=== PATIENT | female | born 1995 | race Caucasian/White ===

== ENCOUNTER 2019-01-23 23:38 | Emergency (ER) | payer BC, MEDICAID ==
--- NOTE | 2019-01-24 00:32 | ED ---
Psychiatric Complaint - HPI Summary HPI Summary: This patient is a 23 year old F presenting to ED accompanied by father with a chief complaint of bipolar disorder since 01/13/19. The father states the patient has been manic for the last 10 days and now the patient is depressed, anxious, and SI. Prior treatment includes 2 trazodone and 2 lorazepam. Usually, the patient is on 1500mg Depakote, 80mg geodon, and 100 mg trazadone. She is not on lithium. The patient rates the pain 2/10 in severity. Symptoms aggravated by nothing. Symptoms alleviated by nothing. Patient reports insomnia. However she was given medication that helped her sleep a lot last night. PMHx of Bipolar disorder I. - History Of Current Complaint Chief Complaint: EDMentalHealth Time Seen by Provider: 01/23/19 23:53 Hx Obtained From: Patient, Family/Regulatory Compliance Officer - accompanied by father Onset/Duration: Sudden Onset, Lasting Days - 10 days ago, Still Present Timing: Days Severity Currently: None Character: Manic, Depressed, Anxious Aggravating Factor(s): Nothing Alleviating Factor(s): Nothing Associated Signs And Symptoms: Positive: Sleep Disturbance Related History: Positive For: Prior Psychiatric Issues Has Suicidal: Reports: Thoughts - Allergies/Home Medications Allergies/Adverse Reactions: Allergies Allergy/AdvReac Type Severity Reaction Status Date / Time No Known Allergies Allergy Verified 01/23/19 23:41 Home Medications: Home Medications Ativan 2 MG TAB 2 mg PO DAILY 01/24/19 [History Confirmed 01/24/19] Depakote 1,500 mg PO BID 01/24/19 [History Confirmed 01/24/19] Ziprasidone HCl [Geodon] 40 mg PO BID 01/24/19 [History Confirmed 01/24/19] traZODone TAB* [Desyrel TAB*] 50 mg PO DAILY PRN 01/24/19 [History Confirmed 05/07] PMH/Surg Hx/FS Hx/Imm Hx Endocrine/Hematology History: Denies: Hx Diabetes Cardiovascular History: Denies: Hx Coronary Artery Disease, Hx Hypertension Psychiatric History: Reports: Hx Bipolar Disorder Infectious Disease History: No Infectious Disease History: Denies: Traveled Outside the US in Last 30 Days - Family History Known Family History: Negative: Blood Disorder - Social History Alcohol Use: None Substance Use Type: Reports: None Smoking Status (MU): Never Smoked Tobacco Review of Systems Neurological: Other - insomnia Positive: Anxious, Depressed, Other - bipolar disorder I, manic, SI All Other Systems Reviewed And Are Negative: Yes Physical Exam - Summary Physical Exam Summary: VITAL SIGNS: Reviewed. GENERAL: Patient is a well-developed and nourished FEMALE who is lying comfortable in the stretcher. Patient is not in any acute respiratory distress. HEAD AND FACE: No signs of trauma. No ecchymosis, hematomas or skull depressions. No sinus tenderness. EYES: PERRLA, EOMI x 2, No injected conjunctiva, no nystagmus. EARS: Hearing grossly intact. Ear canals and tympanic membranes are within normal limits. MOUTH: Oropharynx within normal limits. NECK: Supple, trachea is midline, no adenopathy, no JVD, no carotid bruit, no c- spine tenderness, neck with full ROM CHEST: Symmetric, no tenderness at palpation LUNGS: Clear to auscultation bilaterally. No wheezing or crackles. CVS: Regular rate and rhythm, S1 and S2 present, no murmurs or gallops appreciated. ABDOMEN: Soft, non-tender. No signs of distention. No rebound no guarding, and no masses palpated. Bowel sounds are normal. EXTREMITIES: FROM in all major joints, no edema, no cyanosis or clubbing. NEURO: Alert and oriented x 3. No acute neurological deficits. Speech is normal and follows commands. SKIN: Dry and warm Triage Information Reviewed: Yes Vital Signs On Initial Exam: Initial Vitals Temp Pulse Resp BP Pulse Ox 98.8 F 88 18 108/82 97 01/23/19 23:41 01/23/19 23:41 01/23/19 23:41 01/23/19 23:41 01/23/19 23:41 Vital Signs Reviewed: Yes Diagnostics - Vital Signs Vital Signs Temp Pulse Resp BP Pulse Ox 01/23/19 23:41 98.8 F 88 18 108/82 97 - Laboratory Result Diagrams: 01/24/19 00:26 01/24/19 00:26 Lab Statement: Any lab studies that have been ordered have been reviewed, and results considered in the medical decision making process. Re-Evaluation - Re-Evaluation First Eval Re-Evaluation Time: 01:00 Change: Unchanged Comment: Pt medically cleared for MHE. Course/Dx - Course Assessment/Plan: This patient is a 23 year old F presenting to ED accompanied by father with a chief complaint of bipolar disorder since 01/13/19. Bloodwork, chemistries and toxicology obtained. The patient has been cleared for a MHE. Per mental health oyster worker, Dr. Bright has cleared the patient for discharge. Dx: mood disorder. The patient is agreeable with this plan. - Differential Dx/Clinical Impression Provider Diagnosis: Mood disorder - Physician Notifications Discussed Care Of Patient With: Eric Bright Time Discussed With Above Provider: 02:51 Instructed by Provider To: Other - Per mental health oyster worker, Dr. Bright has cleared the patient for discharge. Dx: mood disorder. Discharge - Sign-Out/Discharge Documenting (check all that apply): Patient Departure - DC Patient Received Moderate/Deep Sedation with Procedure: No - Discharge Plan Condition: Stable Disposition: HOME Patient Education Materials: Mood Disorders (ED) Referrals: No Primary Care Phys,NOPCP [Primary Care Provider] - - Billing Disposition and Condition Condition: STABLE Disposition: Home - Attestation Statements Document Initiated by Dylonibe: Yes Documenting Scribe: Hunter Weiss Provider For Whom Celestine is Documenting (Include Credential): James Bullock MD Scribe Attestation: Hunter Kowalski, scribed for James Bullock MD on 01/24/19 at 0639. Scribe Documentation Reviewed: Yes Provider Attestation: The documentation as recorded by the Hunter mathews accurately reflects the service I personally performed and the decisions made by me, James Bullock MD Status of Scribe Document: Viewed
[2019-01-24 00:34] LABS: ABS Basophils 0.1 10^3/ul (0-0.2); ABS Eosinophils 0.3 10^3/ul (0-0.6); ABS Lymphocytes 2.5 10^3/ul (1.0-4.8); ABS Monocytes 0.6 10^3/ul (0-0.8); ABS Neutrophils 4.4 10^3/ul (1.5-7.7); Eosinophil % 3.9 %; Hematocrit 40 % (35-47); Hemoglobin 13.8 g/dL (12.0-16.0); Lymphocyte % 31.9 %; Mean Corpuscular HGB Conc 34 g/dL (31-36); Mean Corpuscular Hemoglobin 32 pg (27-31); Mean Corpuscular Volume 94 fL (80-97); Mean Platelet Volume 7.5 fL (7.4-10.4); Nucleated Red Blood Cells % 0.1; Platelet Count 242 10^3/uL (150-450); Red Blood Count 4.29 10^6 /uL (3.70-4.87); Red Cell Distribution Width 14 % (10.5-15)
[2019-01-24 00:53] LABS: ALT 21 U/L (7-52); AST 32 U/L (13-39); Albumin 4.2 g/dL (3.2-5.2); Albumin/Globulin Ratio 1.4 (1-3); Alkaline Phosphatase 54 U/L (34-104); Anion Gap 9 mmol/L (2-11); Blood Urea Nitrogen 33 mg/dL (6-24); CO2 Carbon Dioxide 26 mmol/L (22-32); Calcium 9.7 mg/dL (8.6-10.3); Chloride 101 mmol/L (101-111); EGFR African American 113.9 (>60); EGFR Non-African American 94.2 (>60); Globulin 2.9 g/dL (2-4); Glucose 104 mg/dL (70-100); Sodium 136 mmol/L (135-145); Total Protein 7.1 g/dL (6.4-8.9)
[2019-01-24 00:56] LABS: Acetaminophen < 15 mcg/mL; Alcohol < 10 mg/dL (<10); Salicylate < 2.50 mg/dL (<30)
[2019-01-24 00:59] LABS: HCG Pregnancy < 0.60 mIU/mL
[2019-01-24 01:11] LABS: TSH (Thyroid Stimulating Horm) 1.43 mcIU/mL (0.34-5.60)
[2019-01-24 03:16] VITALS: BP 121/76
== END 2019-01-24 03:16 | disposition home or self-care (01) ==
LOC: ED 23:38
DX: F31.9 Bipolar disorder, unspecified (principal); G47.00 Insomnia, unspecified
CPT/HCPCS: 36415; 80053; 80164; 80320; 80329; 84443; 84702; 85025; 99284; G0480

== ENCOUNTER 2019-08-11 04:07 | Emergency (ER) | payer BC, MEDICAID ==
--- OUTSIDE RECORDS SUMMARY | 2019-08-11 04:13 | XMS REPORT | Summary of Care ---
:1995 Author Organization [facility] Address [address] [address] Care Team Providers Name Role Phone None, Larimore Primary Care Provider Unavailable Reason for Visit Reason Comments New Patient left knee pain had fractured it hiking in [place] 6 weeks ago, had brace Encounter Details Date Type Department Care Team Description 06/28/2019 Office Visit [facility] Evelina Etienne, Left knee pain, [place] [facility] unspecified chronicity [address] (Primary Dx) [place] [address] [place] [address] [phone] Allergies Active Allergy Reactions Severity Noted Date Comments Environmental Other 03/15/2019 Sneezing, itchy eyes, drainage documented as of this encounter (statuses as of 06/28/2019) Medications Medication Sig Dispensed Refills Start Date End Date Status trazodone (DESYREL) 50 Take 1.5 Tabs by 45 Tab 5 10/05/2016 Active MG Oral TabIndications: mouth EVERY Bipolar 1 disorder BEDTIME. ([facility]) divalproex sodium Take 2 Tabs by 14 Tab 0 10/30/2016 Active (DEPAKOTE) 250 MG Oral mouth EVERY Tab ECIndications: BEDTIME. Bipolar 1 disorder ([facility]) Additional information Patient taking differently: 250 mg Oral BID, Indications: Taken 250mg in the AM, and 500 at PM, Reported on 02/10/2017 3:13 PM Ziprasidone HCl 60 MG Take 1 Cap by 30 Cap 0 11/02/2016 Active Oral CapIndications: mouth EVERY Bipolar 1 disorder BEDTIME. ([facility]) LORazepam (ATIVAN) 1 Take 1 mg by 0 Active MG Oral Tab mouth HSX1. Ziprasidone HCl 40 MG Take 40 mg by 0 Active Oral Cap mouth EVERY EVENING. fluoxetine (PROZAC) 10 Take 10 mg by 0 Active MG Oral Cap mouth DAILY. mupirocin (BACTROBAN) Apply to sore 30 g 0 05/04/2019 Discontinued 2 % Apply externally areas on abdomen, 019 (Therapy Completed) OintmentIndications: arms and legs Compulsive skin twice daily as picking needed until resolution documented as of this encounter (statuses as of 06/28/2019) Active Problems Problem Noted Date Bipolar 1 disorder 07/28/2016 documented as of this encounter (statuses as of 06/28/2019) Social History Tobacco Use Types Packs/Day Years Used Date Never Smoker 0 Smokeless Tobacco: Never Used Alcohol Use Drinks/Week oz/Week Comments No Sex Assigned at Date Recorded Not on file Job Start Date Occupation Industry Not on file Not on file Not on file Travel History Travel Start Travel End No recent travel history available. documented as of this encounter Last Filed Vital Signs Vital Sign Reading Time Taken Comments Blood Pressure - - Pulse - - Temperature - - Respiratory Rate - - Oxygen Saturation - - Inhaled Oxygen Concentration - - Weight 106.1 kg (234 lb) 06/28/2019 3:20 PM EDT Height 171.5 cm (5' 7.5") 06/28/2019 3:20 PM EDT Body Mass Index 36.11 06/28/2019 3:20 PM EDT documented in this encounter Progress Notes Evelina Etienne PA-C - 06/28/2019 3:00 PM EDT PATIENT: Karin Jacob : 1995 DATE OF SERVICE: 06/28/2019 REFERRING PRACTITIONER: Self PRIMARY CARE PROVIDER: None, Larimore CHIEF COMPLAINT: Chief Complaint Patient presents with New Patient left knee pain had fractured it hiking in [place] 6 weeks ago, had brace Nursing Notes: Brisa Hillman LPN 06/28/2019 3:22 PM Signed REFERRING PRACTITIONER: Self PRIMARY CARE PROVIDER: None, Larimore CHIEF COMPLAINT: Chief Complaint Patient presents with New Patient left knee pain had fractured it hiking in [place] 6 weeks ago, had brace HISTORY OF PRESENT ILLNESS: Karin Jacob is a 24-y.o. female who presents for a new visit. The patient presents with left knee injury and pain. Onset of the symptoms was several weeks ago. Date of injury: Inciting event: injury while hiking. Current symptoms include: pain no, intensity 0, she notes no pain today but notes the pain was lateral when it occurred afterhiking Swelling No, bruising No, weakness No giving way No, catching No, locking No, popping No, grinding No, numbness No stiffness No, radiating pain No to where . Aggravating symptoms: none known. Patient's symptoms are: stable. Patient has had no prior lower extremity problems. Previous visits for this problem: yes, last seen by emergency department at [facility] in [place]. Evaluation to date: plain x-rays : Treatment to date: brace. Past Medical History: She has a past medical history of Depression with anxiety. Past Surgical History: She has no past surgical history on file. Medications: Current Outpatient Medications Medication Sig divalproex sodium (DEPAKOTE) 250 MG Oral Tab EC Take 2 Tabs by mouth EVERY BEDTIME. (Patient taking differently: Take 250 mg by mouth TWICE DAILY. Indications: Taken 250mg in the AM, and 500 at PM) fluoxetine (PROZAC) 10 MG Oral Cap Take 10 mg by mouth DAILY. LORazepam (ATIVAN) 1 MG Oral Tab Take 1 mg by mouth HSX1. trazodone (DESYREL) 50 MG Oral Tab Take 1.5 Tabs by mouth EVERY BEDTIME. Ziprasidone HCl 40 MG Oral Cap Take 40 mg by mouth EVERY EVENING. Ziprasidone HCl 60 MG Oral Cap Take 1 Cap by mouth EVERY BEDTIME. No current facility-administered medications for this visit. Allergies: She is allergic to environmental. Social History: She reports that she has never smoked. She has never used smokeless tobacco. She reports that she does not drink alcohol or use drugs. Family History: She family history includes Diabetes in her maternal grandfather ; High Cholesterol in her maternal grandmother; Hypertension in her maternal grandmother; No Known Problems in her fatherand mother. REVIEW OF SYSTEMS: A comprehensive review of systems was negative except for as noted in the history of present illness/subjective. PHYSICAL EXAMINATION: VITALS: Height 5' 7.5" (1.715 m), weight 234 lb (106.1 kg), not currently . Body mass index is 36.11 kg/m. GENERAL: The patient is alert and oriented times three. Speech and manner are clear and apporopriate. No complaints of memory changes. Patient is able to recall recent and distant events. SKIN: Normal turgor and temperature. No signs of skin lesions, rashes, or ulcerations. No dependent edema. NEUROLOGIC: Coordination and balance ar normal for age. Patellar and achilles reflexes are symmetrical, normal, and 2+. Sensation is intact and symmetrical in the lower extremities. VASCULAR: No venous insufficiency noted in the lower extremities. Pulses are 2+ and normal bilaterally. No clubbing, cyanosis, or edema noted. LOWER EXTREMITY EXAM: KNEE: There is no swelling, erythema, ecchymosis noted of the left knee. No tenderness over the medial joint line and no tenderness over the lateral joint line. Normal alignment. There is no crepitus of the patellofemoral joint. The patient has full active range of motion with full extension and over 120 degrees of flexion. Strength with resisted flexion and extension is full when compared to the opposite side. Negative valgus stress test, varus stress test, Filiberto's, anteriordrawer, posterior drawer, and Magdy's. Calf is soft and nontender. Visualized radiologic studies: Normal left knee IMPRESSION: ICD-9-CM ICD-10-CM 1. Left knee pain, unspecified chronicity 719.46 M25.562 PLAN: Symptoms consistent with IT band injury/tendinitis. She is asymptomatic today and therefore can increase activity as pain allows. Follow-up if symptoms return. May consider MRI to rule out a lateralmeniscal tear at that time. The risks and benefits of my recommendations were discussed with patient and father today. All questions were answered. Author: Evelina Etienne PA-C 06/28/2019 15:39 documented in this encounter Plan of Treatment Date Type Specialty Care Team Description 07/18/2019 Office Visit Bariatrics Jayesh Yanez MD [address] [address] [phone] Health Maintenance Due Date Last Done Comments PAP SMEAR 1995 HPV IMMUNIZATION SERIES (1 - 2008 Female 3-dose series) INFLUENZA VACCINE (#1) 2019 DEPRESSION SCREENING 03/15/2020 03/15/2019 MENINGOCOCCAL VACCINE IMM Aged Out No longer eligible based on patient's age to complete this topic PNEUMOCOCCAL 0-64 YRS Aged Out No longer eligible based on patient's age to complete this topic documented as of this encounter Goals Goal Patient Goal Associated Recent Patient-Stated? Author Type Problems Progress Depression Depression No Saad, screen (PHQ-9) Shaina Goldstein, total score < 5 ALEJANDRINA Note: This is an individualized treatment (depression) goal for Karin Jacob: Displayed above is your goal for a depression screening (PHQ-9) score that would indicate good control of your depression. Keep a regular sleep schedule Lifestyle No Shaina Nash PA-C Note: This is an individualized lifestyle goal for Karin Jacob: Please maintain a regular sleep schedule. This may help with some symptoms of depression. Take all prescribed medications as Self-management No Shaina Nash PA-C directed Note: This is an individualized self-management goal for Karin Jacob: Please take all prescribed medications as directed. 1. Do not skip doses. If you cannot afford your medications, talk with your doctor. 2. Use a pill reminder system such as a pill box if needed. Your pharmacist can help you with this. 3. Contact your Pharmacy 5 days before your medication runs out. If you cannot take your medications for any reasons, talk with your doctor. 4. Please bring all of your medication bottles and inhalers (or a list of all your medications/inhalers) with you to every visit. Potential barriers to meeting all of your care plan goals will continue to be addressed on an ongoing basis. documented as of this encounter Results Not on filedocumented in this encounter Visit Diagnoses Diagnosis Left knee pain, unspecified chronicity - Primary documented in this encounter Insurance Payer Benefit Plan / Subscriber ID Effective Dates Phone Address Type Group JOHN OMALLEY xxxxxxxxxxxx 2018-Present John CASSIDY PPO documented as of this encounter
[2019-08-11 04:52] LABS: ABS Eosinophils 0.4 10^3/ul (0-0.6); ABS Lymphocytes 2.6 10^3/ul (1.0-4.8); ABS Monocytes 0.7 10^3/ul (0-0.8); ABS Neutrophils 3.7 10^3/ul (1.5-7.7); Hematocrit 41 % (35-47); Hemoglobin 14.2 g/dL (12.0-16.0); Mean Corpuscular HGB Conc 35 g/dL (31-36); Mean Corpuscular Hemoglobin 32 pg (27-31); Mean Corpuscular Volume 93 fL (80-97); Mean Platelet Volume 7.1 fL (7.4-10.4); Nucleated Red Blood Cells % 0.1; Platelet Count 267 10^3/uL (150-450); Red Blood Count 4.43 10^6 /uL (3.70-4.87); Red Cell Distribution Width 13 % (10-15); White Blood Count 7.5 10^3/uL (3.5-10.8)
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
[2019-08-11 05:11] LABS: HCG Pregnancy < 0.60 mIU/mL
[2019-08-11 05:19] LABS: Albumin 4.2 g/dL (3.2-5.2); Anion Gap 9 mmol/L (2-11); CO2 Carbon Dioxide 26 mmol/L (22-32); Calcium 9.7 mg/dL (8.6-10.3); Chloride 102 mmol/L (101-111); Potassium 4.1 mmol/L (3.5-5.0); Sodium 137 mmol/L (135-145)
[2019-08-11 05:25] LABS: ALT 11 U/L (7-52); AST 20 U/L (13-39); Albumin/Globulin Ratio 1.2 (1-3); Alkaline Phosphatase 68 U/L (34-104); Blood Urea Nitrogen 24 mg/dL (6-24); EGFR African American 104.9 (>60); EGFR Non-African American 86.7 (>60); Globulin 3.5 g/dL (2-4); Glucose 116 mg/dL (70-100); Total Protein 7.7 g/dL (6.4-8.9)
[2019-08-11 06:00] LABS: TSH (Thyroid Stimulating Horm) 7.55 mcIU/mL (0.34-5.60)
[2019-08-11 06:09] LABS: Acetaminophen < 15 mcg/mL; Alcohol < 10 mg/dL (<10); Salicylate < 2.50 mg/dL (<30)
[2019-08-11 06:20] LABS: Urine Appearance Turbid; Urine Bilirubin Negative (Negative); Urine Blood 2+ (Negative); Urine Color Amber; Urine Glucose Negative (Negative); Urine Ketones Negative (Negative); Urine Nitrite Negative (Negative); Urine Protein 1+(30 mg/dL) (Negative); Urine Specific Gravity 1.023 (1.010-1.030); Urine Urobilinogen Negative (Negative)
[2019-08-11 06:46] LABS: Urine Bacteria Absent (Absent); Urine Red Blood Cell 3+(>10/hpf) (Absent); Urine Squamous Epithelial Cell Present (Absent); Urine White Blood Cell 3+(>20/hpf) (Absent)
[2019-08-11 06:55] LABS: Urine Benzodiazepine Screen None Detected (None Detect); Urine Opiates Screen None Detected (None Detect)
--- NOTE | 2019-08-11 07:38 | ED ---
Progress - Progress Note Progress Note: Patient is received as a sign-out from Dr. Rene to Dr. Carrero at 0700 shift change pending psychiatrist's evaluation of tis mental health patient. 0740 - Patient was evaluated by Dr. Otoole, patient will be discharged to home with out-patient follow up. Dx of bipolar disorder. - Consult/PCP Time Called: 05:00 Re-Evaluation - Re-Evaluation First Eval Re-Evaluation Time: 05:06 Comment: Medically cleared for MHE. Course/Dx - Course Course Of Treatment: Patient was signed out to me by Dr. Rene pending mental health eval. Patient was evaluated in person by the psychiatrist who recommended outpatient treatment. - Diagnoses Provider Diagnoses: Bipolar disorder - Provider Notifications Discussed Care Of Patient With: Luke Otoole Time Discussed With Above Provider: 07:40 Instructed by Provider To: Other - 0740 - Patient was evaluated by Dr. Otoole, patient will be discharged to home with out-patient follow up. Dx of bipolar disorder. Discharge ED - Sign-Out/Discharge Documenting (check all that apply): Patient Departure - discharge , Receiving Sign-Out Receiving patient FROM: Wendy Rene - Discharge Plan Condition: Stable Disposition: HOME Referrals: No Primary Care Phys,NOPCP [Primary Care Provider] - - Billing Disposition and Condition Condition: STABLE Disposition: Home - Attestation Statements Document Initiated by Celestine: Yes Documenting Scribe: RORO CLARK Provider For Whom Celestine is Documenting (Include Credential): ANGELINA CARRERO MD Scribe Attestation: RORO Kowalski, scribed for ANGELINA CARRERO MD on 08/11/19 at 0759. Scribe Documentation Reviewed: Yes Provider Attestation: The documentation as recorded by the RORO mathews accurately reflects the service I personally performed and the decisions made by me, ANGELINA CARRERO MD Status of Scribe Document: Viewed
[2019-08-11 08:31] VITALS: BP 117/90
== END 2019-08-11 08:09 | disposition home or self-care (01) ==
LOC: ED 04:07
DX: F31.9 Bipolar disorder, unspecified (principal); Z79.899 Other long term (current) drug therapy
CPT/HCPCS: 36415; 80053; 80164; 80307; 80320; 80329; 81003; 81015; 84443; 84702; 85025; 87086; 99284; G0480